=== PATIENT | male | born 1970 | race Caucasian/White ===

== ENCOUNTER 2020-10-08 19:41 | Emergency (ER) | payer OTHER, SELFPAY ==
--- NOTE | ~2020-10-08 | CT_ITS ---
EXAMINATION: CT FACIAL BONES WITH CONTRAST CLINICAL INFORMATION: Submandibular abscess. COMPARISON: None TECHNIQUE: 85 mL Omnipaque 350 injected intravenously. Axial images obtained through facial bones. Coronal and sagittal reformatted images performed at the CT scanner This CT examination was performed using dose optimization techniques as appropriate, variously including the following: *Automated exposure control *Adjustment of mA and/or kV according to patient size (this includes techniques or standardized protocols for targeted exams where dose is matched to indication/reason for exam; i.e. extremities or head) *Use of iterative reconstruction technique DLP: 317 mGy-cm FINDINGS: There is periapical disease involving the right mid mandibular molar with lucency around the root and dental caries involving the tooth. No periosteal abscess. No soft tissue abscess or significant inflammation. Submandibular glands and the parotid glands are normal. No significant lymphadenopathy. Small volume of mucosal thickening in the ethmoid, left frontal and right sphenoid sinus. Normal aeration of the maxillary sinus. Orbital globes and retrobulbar structures are normal. Partially visualized intracranial structures are unremarkable. CT/CT facial bones w con IMPRESSION: Periapical disease involving the right mid mandibular molar. No abscess. No significant lymphadenopathy.
[2020-10-08 20:08] VITALS: BP 141/93; PULSE 104; RESP 16; TEMP 37.2; O2SAT 100; BMI 21.1
[2020-10-08 21:29] LABS: MANUAL DIFF FLAG NO
[2020-10-08 21:30] LABS: Basophils Percent Auto 0.1 % (0-2); Eosinophils Absolute Auto 0.3 X10*3/uL (0.0-0.4); Eosinophils Percent Auto 1.6 % (0-4); Hemoglobin 10.8 g/dl (14.0-18.0); Imm Gran Abs Auto 0.05 X10*3/uL (0.00-0.03); Imm Gran Pct Auto 0.3 % (0.0-0.4); Lymphocytes Absolute Auto 2.6 X10*3/uL (1.2-4.9); Lymphocytes Percent Auto 16.1 % (20-40); Mean Corpuscular Hemoglobin 23.4 pg (27.0-33.0); Mean Corpuscular Volume 78.1 fL (80-98); Mean Platelet Volume 9.3 fL (9.4-12.4); Monocytes Absolute Auto 0.9 X10*3/uL (0.1-1.2); Monocytes Percent Auto 5.7 % (2-11); Neutrophils Absolute Auto 12.2 X10*3/uL (2.0-8.3); Neutrophils Percent Auto 76.2 % (45-73); Platelet Count 409 X10*3/uL (160-400); Red Blood Count 4.61 X10*6/uL (4.60-5.80); Red Cell Distribution Width 18.1 % (11.0-16.0)
--- NOTE | 2020-10-08 21:37 | ED.DENTAL ---
HPI - Dental/Oral General Chief complaint: Dental/Oral Stated complaint: Dental pain Time Seen by Provider: 10/08/20 20:56 History of Present Illness HPI Narrative: Patient complains of severe left-sided dental pain for 3 days that got much worse today, no fever no chills no difficulty breathing or swallowing Related Data Allergies Allergy/AdvReac Type Severity Reaction Status Date / Time Sulfa (Sulfonamide Allergy Intermediate RASH Unverified 02/26/20 17:17 Antibiotics) [SULFA (SULFONAMIDE ANTIBIOTICS)] sulfamethoxazole Allergy Intermediate ITCHING Unverified 02/26/20 17:17 [From ] trimethoprim [From ] Allergy Intermediate ITCHING Unverified 02/26/20 17:17 vancomycin [Vancomycin] Allergy Intermediate ITCHING Unverified 02/26/20 17:17 From ZOSYN Allergy Mild RASH Uncoded 02/26/20 17:17 Review of Systems Review of Systems: Positive for left-sided dental pain Negatives are no fever no chills no dizziness no weakness no fainting no headache no ear pain no neck pain no shortness of breath no chest pain no vomiting no rash PMFSH Past Medical History Source: nursing notes reviewed Social History Social History Advance Directives: No Physical Exam Vital Signs: Vital Signs: Last Vital Signs Temp 99.0 F 10/08/20 20:08 Pulse 104 H 10/08/20 20:08 Resp 16 10/08/20 20:08 BP 141/93 H 10/08/20 20:08 Pulse Ox 100 10/08/20 20:08 Body Mass Index 21.1 General appearance very uncomfortable, groaning, no acute distress, cooperative and O x3 The ears are clear The sinuses are nontender The dental exam there is tenderness to left lower molar there is some facial swelling in the area, there is no fluctuant gum abscess that I could find, there was some tenderness under the tongue as well as in the submandibular area, no drooling, pharynx was normal Neck was supple Respiratory no distress Skin no obvious rash Neuro no focal deficit Course Course Course Narrative: 21:30 case is signed out to physician district administrative assistant Anny long to follow CT scan results, re-evaluate pain control after patient was given 6 of morphine, follow CT and lab results and dispo the patient MDM - Dental/Oral Lab Data Result diagrams: 10/08/20 21:20 10/08/20 21:20 Labs: Lab Results 10/08/20 Range/Units 21:20 WBC 16.0 H (4.8-10.8) X10*3/uL RBC 4.61 (4.60-5.80) X10*6/uL Hgb 10.8 L (14.0-18.0) g/dl Hct 36.0 L (42-52) % MCV 78.1 L (80-98) fL MCH 23.4 L (27.0-33.0) pg MCHC 30.0 L (31.0-36.0) g/dl RDW 18.1 H (11.0-16.0) % Plt Count 409 H (160-400) X10*3/uL MPV 9.3 L (9.4-12.4) fL Immature Gran % (Auto) 0.3 (0.0-0.4) % Neut % (Auto) 76.2 H (45-73) % Lymph % (Auto) 16.1 L (20-40) % [place]haw % (Auto) 5.7 (2-11) % Eos % (Auto) 1.6 (0-4) % Baso % (Auto) 0.1 (0-2) % Lymph # (Auto) 2.6 (1.2-4.9) X10*3/uL [place] # (Auto) 0.9 (0.1-1.2) X10*3/uL Eos # (Auto) 0.3 (0.0-0.4) X10*3/uL Baso # (Auto) 0.0 (0.0-0.2) X10*3/uL Abs Immat Gran (auto) 0.05 H (0.00-0.03) X10*3/uL Absolute Neuts (auto) 12.2 H (2.0-8.3) X10*3/uL Absolute Nucleated RBC 0.000 (0.0-0.012) X10*3/uL Nucleated RBC % (auto) 0.0 (0.0-0.2) /100WBC
[2020-10-08] MEDS: Morphine Sulfate 4 MG/ML CARTRIDGE IVPUSH (21:39)
[2020-10-08] MEDS: Morphine Sulfate 2 MG/ML CARTRIDGE IVPUSH (21:39)
[2020-10-08] MEDS: Clindamycin Phosphate/D5W 600 MG/50 ML PIGGYBACK 100 MG IV (21:44)
[2020-10-08 21:46] LABS: Lactic Acid 0.8 mmol/L (0.5-2.0)
[2020-10-08 21:50] LABS: Anion Gap 18 (12-20); Blood Urea Nitrogen 14 mg/dL (9-16); Calcium 8.9 mg/dL (8.4-10.2); Carbon Dioxide 22 mmol/L (22-29); Chloride 102 mmol/L (96-108); Creatinine Clr Calc Pharmacy 120.9; Estimated Glomerular Filt Rate > 60; Glucose Random 69 mg/dL (60-115); Potassium 3.8 mmol/L (3.3-5.1); Sodium 138 mmol/L (135-145)
[2020-10-08] MEDS: iohexoL 350 MG/ML 100 ML INFUS..BTL IV (22:12)
[2020-10-08 22:15] VITALS: BP 147/80; PULSE 102; RESP 16; TEMP 37.2; O2SAT 99
--- NOTE | 2020-10-09 01:15 | PC.NURSE ---
PT SLEPT COMFORTABLY AFTER MORPHINE GIVEN WITH EVEN RR.
== END 2020-10-08 23:59 | disposition home or self-care (01) ==
PROVIDERS: Physician Assistant Medical; Emergency Provider Internal Medicine
DX: K08.89 Other specified disorders of teeth and supporting structures (principal)
CPT/HCPCS: 36415; 70487; 80048; 83605; 85025; 87040; 96365; 96375; 96376; 99284; J2270; Q9967